=== PATIENT | female | born 1945 | race Caucasian/White ===

== ENCOUNTER 2025-01-24 08:58 | Outpatient (AMB) | payer OTHER, SELFPAY ==
--- NOTE | 2025-01-24 09:10 | A.PHYSOV ---
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: No Allergies acetaminophen (From Percocet) Allergy (Unknown, Verified 01/24/25 09:11) Unknown alendronate sodium (From Fosamax) Allergy (Unknown, Verified 01/24/25 09:11) Unknown lisinopril Allergy (Unknown, Verified 01/24/25 09:11) Unknown naproxen (From Aleve) Allergy (Unknown, Verified 01/24/25 09:11) Unknown oxycodone (From Percocet) Allergy (Unknown, Verified 01/24/25 09:11) Unknown pravastatin Allergy (Unknown, Verified 01/24/25 09:11) Unknown Physical Exam Vital Signs: Last Vital Signs Temp 97.6 F 01/24/25 09:12 Pulse 73 01/24/25 09:12 BP 119/69 01/24/25 09:12 BMI result Body Mass Index 30.3 Office Procedures Procedure Details: Preop diagnosis: Lumbar radiculitis Postop diagnosis: The same After informed consent was obtained, patient was placed on the procedure table in a prone position. Skin over lumbosacral area was prepped and draped in usual sterile manner. Right L4 pedicle was visualized utilizing fluoroscopy. 3.5 inch 22 gauge spinal needle was introduced percutaneously and advanced towards the pedicle at about 6 o'clock position. Once level of neural foramina was reached, needle placement was verified utilizing 3 cc of Omnipaque contrast solution. Excellent flow through the neural foramina and epidural spread was identified without evidence of vascular uptake. Total volume of 6 cc containing 2 cc of 1% lidocaine, 40 mg of triamcinolone and normal saline solution were injected after negative aspiration for blood and cerebrospinal fluid. Identical procedure was repeated on the opposite side. Radiation exposure was documented in the chart. Lumbar transforaminal Epidural Steroid Inj- use with FL Gd: 01478 - Single (Bilateral procedure modifier 50) Procedure code (CPT) selection complete Office Meds Kenalog 40 mg/mL suspension for injection Performing Provider: Rio Ruiz DO Performing Location: [facility] Administered by: Rio Ruiz DO on 01/24/25 09:42 Dose Route Admin Location Dispensed Lot Number Expiration Date FORMERLY NAMED [facility] Infrastructure Analyst 80 mg IM 2 mL [id number] [employer] Total Dispensed Waste 2 mL 0 % lidocaine (PF) 10 mg/mL (1 %) injection solution Performing Provider: Rio Ruiz DO Performing Location: [facility] Administered by: Rio Ruiz DO on 01/24/25 09:42 Dose Route Admin Location Dispensed Lot Number Expiration Date FORMERLY NAMED [facility] Infrastructure Analyst 10 mL epidural 30 mL [id number] [facility] Total Dispensed Waste 30 mL 66.66 % Assessment & Plan Assessment & Plan (1) Lumbar radiculitis: Code(s): M54.16 - Radiculopathy, lumbar region Category: Medical Plan: Procedure performed Orders: Orders FL Gd Lumbar Transforaminal In Today M54.16 - Radiculopathy, lumbar region AMB Lumbar transforaminal Epidural Steroid Injection Today M54.16 - Radiculopathy, lumbar region Coding Level of Care Code Procedure Only Diagnoses Lumbar radiculitis M54.16 CPT Codes Lumbar transforaminal Epidural Steroid I - CPT TRANSFORM: 49402 - SingleBilateral procedure modifier 50 ([id number])
[2025-01-24 09:12] VITALS: BP 119/69; PULSE 73; TEMP 36.4; BMI 30.3
--- OUTSIDE RECORDS SUMMARY | 2025-01-24 09:57 | XMS_ITS | Clinical Summary ---
Author Organization [facility] Address [address] [facility] [address] [place] [address] Phone Care Team Providers Care Pattern Filer Name Role Phone Evelyn Pinon MD Primary Care Provider [phone] Allergies Active Allergy Reactions Criticality Noted Date Comments Alendronate 06/24/2009 Stomach pain and nausea but the patient used for more than 5 years Lisinopril 10/24/2014 cough Naproxen Swelling 11/25/2008 Facial swelling Oxycodone-Acetaminophen Other (see comments) Vomits blood Pravastatin 08/26/2010 bodyaches Medications losartan (COZAAR) 25 MG tablet Take 25 mg by mouth in the morning. 02/27/2023 Active loratadine (CLARITIN) 10 MG tablet Take 10 mg by mouth in the morning. 04/05/2023 Active fenofibrate (TRICOR) 145 MG tablet Take 145 mg by mouth in the morning. 01/09/2023 Active calcium carbonate (OS-HUEY) 600 MG tablet Take 1 tablet by mouth in the morning and 1 tablet in the evening. 09/07/2022 Active Vitamin D, Cholecalciferol , 50 MCG (1999 UT) capsule Take 2,000 mcg by mouth 1 (one) time each day Active Active Problems Problem Noted Date Diagnosed Date Stage 3a chronic kidney disease 11/07/2023 Chronic kidney disease due to benign hypertensio n 11/07/2023 Vitamin D deficiency, not otherwise specified Hypertensive disorder 10/07/2014 Immunizations Immunization Administration Dates Next Due Influenza Split High Dose Pr eservative Free IM 01/22/2023,03/11/2021,12/09/2015 Influenza TIV (IM) 01/30/2015, 4,12/25/2012,02/22,11/25/2010,12/24/2009,11/25/2008 Moderna SARS-COV-2 01/22/2023, 1,05/31/2020,05/03 Pneumococcal Conjugate 13-Valent 10/04/2016 Pneumococcal Polysaccharide 11/25/2008 Td 12/24/2009 Tdap 02/27/2023 Family History Relation Status Comments Father Mother Social History Tobacco Use Types Packs/Day Years Used Date Smoking Tobacco: Never Smokeless Tobacco: Never Tobacco Cessation:Counseling Given: Not Answered Alcohol Use Standard Drinks/Week Comments Never 0 (1 standard drink = 0.6 oz pur e alcohol) Comments Unknown Sex and Gender Information Value Date Recorded Sex Assigned at Not on file Legal Sex Female 4:23 PM EST Gender Identity Not on file Sexual Orientation Not on file Last Filed Vital Signs Vital Sign Reading Time Taken Comments Blood Pressure 150/80 12/19/2023 4:27 PM EDT Pulse 67 12/19/2023 4:12 PM EDT Temperature - - Respiratory Rate - - Oxygen Saturation 98% 12/19/2023 4:12 PM EDT Inhaled Oxygen Concentration - - Weight 63 kg (139 lb) 12/19/2023 4:12 PM EDT Height - - Body Mass Index - - Plan of Treatment Health Maintenance Due Date Last Done Comments Influenza Vaccine (#1) 2024 3, 03/11/2021, 12/09/2015, Additional history exists Pneumococcal Vaccine: 50+ Years Completed 10/04/2016, 11/25/2008 Hepatitis B Vaccine Aged Out No longe r eligible based on patient's age to complete this topic Insurance [facility] ([id number]) [place] [id number] [facility] ([id number]) [place] [phone] Care Teams Pattern Filer Relationship Specialty Start Date End Date Evelyn Pinon MD [address] [place] [address] [phone] PCP - General Internal Medicine 11/07/23
--- OUTSIDE RECORDS SUMMARY | 2025-01-24 09:57 | XMS_ITS | Clinical Summary ---
Author Organization [facility] [address] [facility] Address [address] [place] [phone] Phone Care Team Providers Care Social Worker Palliative Care Name Role Phone Evelyn Pinon MD Primary Care Provider [phone] Allergies Active Allergy Reactions Criticality Noted Date Comments Alendronate Sodium 06/24/2009 Stomach pain and nausea but the patient used for more than 5 years Diphenhydramine-Acetaminophe n Other 11/25/2008 palpitations Lisinopril 10/24/2014 cough Naproxen Sodium Swelling 11/25/2008 Facial swelling Oxycodone-Acetaminophen Other 11/25/2008 Vomits blood Pravastatin Sodium 08/26/2010 bodyaches Medications polyethylene glycol (GoLYTELY) 236-22.74-6.74 -5.86 gram solution Take 240 mL by mouth. 3 Active calcium carbonate (Calcium 600) 1,500 mg (600 mg elemental calcium) tablet Take 1 tablet (1,500 mg total) by mouth 2 (two) times a day. 3 Active bisacodyL (DULCOLAX) 5 mg EC tablet Take 1 tablet (5 mg total) by mouth. 3 Active fenofibrate (TRICOR) 145 mg tablet TAKE 1 TABLET BY MOUTH EVERY DAY 90 tablet 1 5 Active losartan (COZAAR) 25 mg tablet TAKE 1 TABLET BY MOUTH EVERY DAY 90 tablet 1 5 Active loratadine (CLARITIN) 10 mg tabletIndications:Pur e hyperglyceridemia TAKE 1 TABLET BY MOUTH EVERY DAY 90 tablet 1 5 Active Active Problems Problem Noted Date Diagnosed Date Vitamin D deficiency 06/14/2022 Obesity (BMI 30-39.9) 12/05/2019 CKD (chronic kidney disease) stage 3, GFR 30-59 ml/min ([facility] V24, [facility] V28) 08/22/2018 Colon polyp 11/13/2016 Overview (05/08/2023): Serrated adenoma, rpt cscope 10/2021 Hypertriglyceridemia 10/28/2014 HTN (hypertension) 10/07/2014 Osteoporosis 08/22/2011 Overview (05/08/2023): Previous Fosamax stopped 03/2009 after 5 years, stomach pain and nausea Zoledronic acid 5mg annually started 04/05, 05/09 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 Associated with photophobia, unbalance and hypesthesia on the right occipital area Seasonal allergies 06/24/2009 Low back pain 01/23/2009 Blindness of one eye 11/25/2008 Overview (05/08/2023): Right eye blindness since childhood DJD (degenerative joint disease) 11/25/2008 GERD (gastroesophageal reflux disease) 9 Obesity 11/25/2008 Immunizations Immunization Administration Dates Next Due Influenza Quadravalent, 0.5m l (Fluad) 65yo and older 01/22/2023 Influenza Quadravalent, 0.5m l (Fluzone High-dose) 65yo and older 01/21/2022,03/11/2021 Influenza trivalent, 0.5mL ( Fluzone High-dose) 65yo and older 12/26/2024,02/08/2024,01/22/2023,03/11,12/09/2015 Influenza trivalent, with pr eservative (Fluzone; Afluria) 6mo and older 01/30/2015,01/28/2014,12/25/2012,02/22,11/25/2010,12/24/2009,11/25/2008 Moderna (age 6mo & older) Bi valent, COVID-19, 0.5 mL or 0.25 mL dosage 02/05/2022 Pneumococcal conjugate 13 va lent (Prevnar 13, PCV13) 2mo and older 10/04/2016 Pneumococcal polysaccharide 23 valent (Pneumovax 23) 2yo and older 11/25/2008 Td Tetanus diptheria (Tdvax) 7yo and older 12/24/2009 Tdap Tetanus diptheria acell ular pertussis (Boostrix; Adacel) 7yo and older 02/27/2023 Surgical History Surgery Date Site/Laterality Comments HYSTERECTOMY PROCEDURE: HISTORICAL HYSTERECTOMY; COMMENT: and BSO EYE SURGERY PROCEDURE: HISTORICAL EYE SURGERY; COMMENT: eyelid Sx and cataracts BREAST LUMPECTOMY Right PROCEDURE: ---- BREAST LUMP BIOPSY ----; COMMENT: benign COLONOSCOPY W/ POLYPECTOMY 11/07/2016 PROCEDURE: DE COLSC FLX W/RMVL OF TUMOR POLYP LESION SNARE TQ; COMMENT: serrated adenoma BREAST BIOPSY 1990ish Left PROCEDURE: BX BREAST; PERC NEEDLE CORE W/IMAG GUID; COMMENT: benign BREAST BIOPSY 1963 Right PROCEDURE: BX BREAST; PERC NEEDLE CORE W/IMAG GUID; COMMENT: benign Medical History Medical History Date Comments HTN (hypertension) 10/07/2014 DX:HTN (hyper tension) Family History Medical History Relation Name Comments Diabetes Father and almost all father 's side Heart attack Father Prostate cancer Father Other: TB Mother from TB wh en pt was 4 Breast cancer Neg Hx Colon cancer Neg Hx Hyperlipidemia Neg Hx Ovarian cancer Neg Hx Relation Name Status Comments Daughter 1 Alive migraines Daughter 2 Alive Father [place], HTN, DM, pr ostate problems Mother TB Son 1 Alive Son 2 Alive Social History Tobacco Use Types Packs/Day Years Used Date Smoking Tobacco: Never Smokeless Tobacco: Never Tobacco Cessation:Counseling Given: Not Answered Alcohol Use Standard Drinks/Week Comments No 0 (1 standard drink = 0.6 oz pur e alcohol) Comments No Sex and Gender Information Value Date Recorded Sex Assigned at Not on file Legal Sex Female 4:53 AM EST Gender Identity Not on file Sexual Orientation Not on file Obstetrics History Para Term AB IAB SAB Ectopic Multiple Livin g Live Births 4 4 4 4 Date Outcome GA Total Labor Labor/2nd/3rd Weight Sex Type Anes PTL Marybeth A1 A5 Name Clin Term Term Term Term Last Filed Vital Signs Vital Sign Reading Time Taken Comments Blood Pressure 137/72 09/23/2024 3:52 PM EDT Pulse 64 09/23/2024 3:52 PM EDT Temperature 36.1 C (96.9 F) 09/23/2024 3:52 PM EDT Respiratory Rate 20 09/23/2024 3:52 PM EDT Oxygen Saturation - - Inhaled Oxygen Concentration - - Weight 64 kg (141 lb) 09/23/2024 3:52 PM EDT Height 142.2 cm (4' 8 ) 09/23/2024 3:52 PM EDT Body Mass Index 31.61 09/23/2024 3:52 PM EDT Plan of Treatment Upcoming Encounters Date Type Department Care Team (Late st Contact Info) Description 02/24/2025 9:30 AM EST Office Visit [facility] - [address] [phone] Evelyn Pinon MD [address] [place] [phone] 07/07/2025 2:20 PM EDT Appointment Radiology Department - [address] [phone] Health Maintenance Due Date Last Done Comments Colorectal Cancer Screening: Colonoscopy 1945 Zoster Vaccines (1 of 2) 11/20/1962 RSV Immunization Adult Patients (1 - 1-dose 75+ series) 11/20/2018 Falls Risk Assessment 02/26/2022 Medicare Annual Wellness Visit 02/26/2022 Social Influencers of Health Screening 02/26/2022 Depression Screening 03/20/2024 Hypertension/CHF/CAD Annual BMP Blood Test 08/29/2024 08/30/2023 COVID-19 Vaccine ( season) 2024 01/22/2023, 02/05/2022, 02/06/2021, Additional history exists Cholesterol Screening (Lipid Panel) 08/29/2028 08/30/2023 DTaP,Tdap,and Td Vaccines (3 - Td or Tdap) 02/27/2033 02/27/2023, 12/24/2009 Osteoporosis Screening (Bone Density Screening) 10/04/2034 10/04/2024, 08/22/2022, 11/05/2019, Additional history exists Pneumococcal Vaccine: 50+ Years Completed 10/04/2016, 11/25/2008 Influenza Vaccine Completed 12/26/2024, , 01/22/2023, Additional history exists HIB Vaccines Aged Out No longer eligi ble based on patient's age to complete this topic HPV Vaccines Aged Out No longer eligi ble based on patient's age to complete this topic Hepatitis A Vaccines Aged Out No long er eligible based on patient's age to complete this topic Hepatitis B Vaccines Aged Out No long er eligible based on patient's age to complete this topic IPV Vaccines Aged Out No longer eligi ble based on patient's age to complete this topic MMR Vaccines Aged Out No longer eligi ble based on patient's age to complete this topic Meningococcal ACWY Vaccine Aged Out N o longer eligible based on patient's age to complete this topic Meningococcal B Vaccine Aged Out No l onger eligible based on patient's age to complete this topic RSV Immunization Patients Under 20 months Aged Out No longer eligible based on patient's age to complete this topic Varicella Vaccines Aged Out No longer eligible based on patient's age to complete this topic Procedures Procedure Name Priority Date/Time Associated Diagnosis Comments BD BONE DENSITY DXA AXIAL SKELETON Routine 10/04/2024 10:35 AM EDT Encounter for osteoporosis screening in asymptomatic postmenopausal patient from Last 3 Months or Most Recently Relevant to Health Maintenance Results * BD Bone Density DXA Axial Skeleton (10/04/2024 10:35 AM EDT) Anatomical Region Laterality Modality Wrist, Hip, L-spine Bone Densito metry 10/07/2024 10:1 7 AM EDT Impressions 10/07/2024 10:20 AM EDT Osteopenia by WHO criteria. This patient has a 10% risk of major osteoporotic fracture and a 3.3% risk of hip fracture over the next 10 years. (World Health Organization Fracture Risk Assessment) [facility] Department of Internal Medicine recommends using National Osteoporosis Foundation (NOF) guidelines in treatment decisions related to osteoporosis. NOF guidelines suggest considering treatment for postmenopausal women and men aged 50 or older presenting with the following: History of hip or vertebral fracture. T-score = -2.5 (DXA) at the femoral neck, total hip, or spine, after appropriate evaluation to exclude secondary causes. Low bone mass (T-score between -1.0 and -2.5 at the femoral neck or spine) AND a 10-year probability of a hip fracture = 3% OR a 10-year probability of a major osteoporosis-related fracture = 20% based on the [place]-adapted WHO algorithm Please note that all treatment decisions require clinical judgment and consideration of individual patient factors, including patient preferences, co-morbidities, previous drug use, risk factors not captured in the FRAX model (e.g., frailty, falls, vitamin D deficiency, increased bone turnover, interval significant decline in bone density) and possible under- or over-estimation of fracture risk by FRAX. Optional alternative screening schedule based on tono Larios., [place] April 07, 2011 for patients with osteopenia (based on hip BMD T-score) is as follows: * advanced osteopenia (T scores -2.00 to -2.49), BMD testing every year * moderate osteopenia (T scores -1.50 to -1.99), BMD testing every 5 years mild osteopenia or normal BMD (T scores -1.50 and higher), BMD testing every 15 years -------- FINAL REPORT -------- Dictated By: Laura Gallo Dictated Date: 10/07/2024 10:17 ET Assigned Physician: Laura Gallo Reviewed and Electronically Signed By: Laura Gallo Signed Date: 10/07/2024 10:20 ET Workstation ID: [id number] Transcribed By: Self Edit Transcribed Date: 10/07/2024 10:17 ET Narrative 10/07/2024 10:20 AM EDT BONE DENSITY SCAN (DEXA): FINDINGS: Lumbar Spine T-score is -2.0. (SD relative to 20-29 y/o adult) Z-score is 0.7. (SD relative to age matched peers) This is considered osteopenia by WHO criteria. Left Hip T-score is -2.4. Z-score is -0.1. This is considered osteopenia by WHO criteria. Comparison exam(s): 08/22/2022. 6.6% loss of left hip bone mineral density which is statistically significant at the 95% confidence level. No statistically significant change in lumbar spine bone mineral density. Lateral survey view of the thoracolumbar spine shows no significant compression deformities. Procedure Note Laura Gallo MD - 10/07/2024 BONE DENSITY SCAN (DEXA): FINDINGS: Lumbar Spine T-score is -2.0. (SD relative to 20-29 y/o adult) Z-score is 0.7. (SD relative to age matched peers) This is considered osteopenia by WHO criteria. Left Hip T-score is -2.4. Z-score is -0.1. This is considered osteopenia by WHO criteria. Comparison exam(s): 08/22/2022. 6.6% loss of left hip bone mineraldensity which is statistically significant at the 95% confidence level.No statistically significant change in lumbar spine bone mineraldensity. Lateral survey view of the thoracolumbar spine shows no significantcompression deformities. IMPRESSION: Osteopenia by WHO criteria. This patient has a 10% risk of majorosteoporotic fracture and a 3.3% risk of hip fracture over the next 10years. (World Health Organization Fracture Risk Assessment) [facility] Department of Internal Medicine recommendsusing National Osteoporosis Foundation (NOF) guidelines in treatmentdecisions related to osteoporosis. NOF guidelines suggest consideringtreatment for postmenopausal women and men aged 50 or older presentingwith the following: History of hip or vertebral fracture. T-score = -2.5 (DXA) at the femoral neck, total hip, or spine, afterappropriate evaluation to exclude secondary causes. Low bone mass (T-score between -1.0 and -2.5 at the femoral neck or spine)AND a 10-year probability of a hip fracture = 3% OR a 10-year probabilityof a major osteoporosis-related fracture = 20% based on the [place]-adapted WHOalgorithm Please note that all treatment decisions require clinical judgment andconsideration of individual patient factors, including patientpreferences, co-morbidities, previous drug use, risk factors not capturedin the FRAX model (e.g., frailty, falls, vitamin D deficiency, increasedbone turnover, interval significant decline in bone density) and possibleunder- or over-estimation of fracture risk by FRAX. Optional alternative screening schedule based on tono Larios., NEJMJanuary 2011 for patients with osteopenia (based on hip BMD T-score)is as follows: * advanced osteopenia (T scores -2.00 to -2.49), BMD testing every year * moderate osteopenia (T scores -1.50 to -1.99), BMD testing every 5years mild osteopenia or normal BMD (T scores -1.50 and higher), BMD testingevery 15 years -------- FINAL REPORT -------- Dictated By: Laura Gallo Dictated Date: 10/07/2024 10:17 ET Assigned Physician: Laura Gallo Reviewed and Electronically Signed By: Laura Gallo Signed Date: 10/07/2024 10:20 ET Workstation ID: [id number] Transcribed By: Self Edit Transcribed Date: 10/07/2024 10:17 ET Evelyn Pinon MD IMG DXA PROCEDURES Final Result from Last 3 Months or Most Recently Relevant to Health Maintenance Insurance [facility] MEDICARE Member Subscriber Plan / Payer (Ef fective 2023-Present) Name:Shweta Prieto Relation to Subscriber:Self Name:Shweta Prieto Payer ID:[id number] Group ID:[id number] Type:Not on file Address: [place] [address] [place] [phone] Care Teams Social Worker Palliative Care Relationship Specialty Start Date End Date Evelyn Pinon MD [address], [place] [phone] PCP - General Internal Medicine 01/30/15
== END 2025-01-24 10:08 | disposition home or self-care (01) ==
LOC: HO.HPHYS 08:59
PROVIDERS: Visit Provider Physical Medicine & Rehabilitation
DX: M54.16 Radiculopathy, lumbar region (principal)
CPT/HCPCS: 64483

== ENCOUNTER 2025-01-24 08:58 | Outpatient (REF) | payer OTHER, SELFPAY | END 2025-01-24 08:59 | disposition home or self-care (01) | LOC: HO.HPHYSR 08:58 | PROVIDERS: Visit Provider Physical Medicine & Rehabilitation | DX: M54.16 Radiculopathy, lumbar region (principal) | CPT/HCPCS: 64483; J2003; J3301 ==